=== PATIENT | female | born 2000 | race Caucasian/White ===

== ENCOUNTER 2022-11-11 04:15 | Observation (INO) | payer OTHER ==
[2022-11-11 07:40] VITALS: RESP 16
[2022-11-11] MEDS ORDERED: LACTATED RINGERS 1,000 ML IV SCH (07:45)
--- NOTE | 2022-11-11 08:00 | US ---
EXAMINATION TYPE: US OB limited DATE OF EXAM: 11/11/2022 COMPARISON: NONE CLINICAL INDICATION: Female, 22 years old with history of NAYLA; Pt states decrease in movement, Check NAYLA EXAM PERFORMED: Transabdominal (TA) GESTATIONAL AGE / DATING Physician Established: (35 weeks/1 days) EDC: 12/15/2022 No growth performed on today?s study per ordering physician SURVEY NAYLA: 11.3 cm Normal Ultrasound evidence of premature rupture of membranes? No HEART RATE: 160 bpm RHYTHM: Normal Preliminary results given to Labor and Delivery at time of exam IMPRESSION: 1. NAYLA 11.3 cm. 2. Single intrauterine gestation with cardiac activity measuring 160 bpm
[2022-11-11 08:04] LABS: Basophils % (A) 0 %; Eosinophils # (A) 0.1 k/uL (0-0.7); Eosinophils % (A) 1 %; HCT 30.3 % (34.0-46.0); HGB 9.8 gm/dL (11.4-16.0); Hypochromasia Moderate; Lymphocytes # (A) 1.9 k/uL (1.0-4.8); Lymphocytes % (A) 20 %; MCH 25.2 pg (25.0-35.0); MCHC 32.2 g/dL (31.0-37.0); MCV 78.2 fL (80.0-100.0); Mean Platelet Volume 9.5; Monocytes # (A) 0.5 k/uL (0-1.0); Monocytes % (A) 5 %; Neutrophils # (A) 6.7 k/uL (1.3-7.7); Neutrophils % (A) 71 %; Platelet Count 198 k/uL (150-450); Poikilocytosis Slight; RBC 3.87 m/uL (3.80-5.40); WBC 9.4 k/uL (3.8-10.6)
[2022-11-11] MEDS ORDERED: BETAMET ACET-BETAMETH SOD PHOS 6 MG/ML MDV IM SCH (09:15)
--- NOTE | 2022-11-11 10:28 | P.HPOB ---
History of Present Illness H&P Date: 11/11/22 Chief Complaint: Right leg swelling This is a 22-year-old at 35 weeks and 0 days who presented to triage this morning with the complaint of right leg swelling. The has been complicated by IUGR 3%ile with abdominal circumference less than the 1%ile for which the patient has been ungoing surveillance with NSTs, BPPs, and umbilical artery cord dopplers. IUGR was diagnosed at the anatomy scan at approximately 20 weeks for which the patient had an outpatient consultation and ultrasound with Maternal Medicine at [facility]. On of last week (11/08) the patient had a BPP of 4/8 with NST showing intermittent variables decelerations. Growth on this ultrasound estimated weight to be 4 pounds and 4 oucnes (3.8%ile). The decision was made to send the patient to [facility] given that the fetus was still in its 34th week for the NICU level care available at this facility. Upon arrival, the patient had a BPP of 8/8 with a reactive and reassuring heart tracing overnight and through the morning. The patient was discharged home with recommendation from [facility] to have an NST at [facility] OB triage today. Upon evaluation, the patient's right leg was equal in size to the left left. There was no erythema or tenderness concerning for DVT. The fetus has a normal baseline with moderate variability and accelerations, however, repetitive variables were seen on the heart tracing. The patient was admitting for observation and a course of betamethasone after shared decision making about the pros and cons of late steroid administration. Maternal work-up: blood type A positive, antibody screen negative, rubella immune, gonorrhea negative, chlamydia negative, 1 hour GTT 78. GBS unknown. Past Medical History: None Past Surgical History: None Past Gynecologic History: None, LMP 03/10/2022 Past Medical History Past Medical History: No Reported History History of Any Multi-Drug Resistant Organisms: None Reported Past Surgical History: No Surgical Hx Reported Past Anesthesia/Blood Transfusion Reactions: No Reported Reaction Past Psychological History: No Psychological Hx Reported Smoking Status: Never smoker Past Alcohol Use History: None Reported Past Drug Use History: None Reported - Past Family History Mother Family Medical History: No Reported History Medications and Allergies Home Medications Medication Instructions Recorded Confirmed Type Vit No.179/Iron/Folic 1 tab PO DAILY 11/11/22 11/11/22 History [ Tablet] Allergies Allergy/AdvReac Type Severity Reaction Status Date / Time No Known Allergies Allergy Verified 11/11/22 04:25 Exam Vital Signs Temp Pulse Resp BP Pulse Ox 11/11/22 08:02 98.6 F 70 16 120/63 98 11/11/22 07:51 98.6 F 70 16 120/63 98 11/11/22 04:24 98.1 F 80 16 129/80 98 Intake and Output 11/10/22 11/11/22 11/11/22 22:59 06:59 14:59 Other: Weight 63.957 kg 63.957 kg Focused physical exam is performed. Patient is in no apparent distress, has non- labored breathing, conversing normally. Abdomen gravid, non-tender. Extremities non-tender and non-edematous. On admission heart tracing showed 140 baseline with moderate variability, accelerations present, and repetitive variable decelerations. Tocometer shows irregular contractions every 5-20 minutes. Results Result Diagrams: 11/11/22 07:45 Abnormal Lab Results - Last 24 Hours (Table) 11/11/22 Range/Units 07:45 Hgb 9.8 L (11.4-16.0) gm/dL Hct 30.3 L (34.0-46.0) % MCV 78.2 L (80.0-100.0) fL Assessment and Plan Assessment: 22 year old at 35 weeks and 0 days with complicated by IUGR 3%ile and repetitive variables on NST Plan: IUGR fetus with repetitive variable decelerations: spoke with MFM today while patient was having variable decelerations every 5-20 minutes and they recommend delivery if the variables persist. Recommendation is for a shared decision making on whether or not to administer BMZ. Patient elects for BMZ after a detailed discussion of pros and cons. After 2 hours of continuous electronic monitoring, the fetus has a reactive and reassuring tracing with accelerations and no decelerations. The patient is given a regular diet and made NSTs TID x1 hour for surveillance. If the next 1-2 NSTs look reactive and reassuring, will consider discharge home this evening with close follow up tomorrow in the office for NST and visit. Time with Patient: Greater than 30 (35 minutes)
[2022-11-11 12:25] VITALS: BP 118/59; PULSE 64; TEMP 98
--- NOTE | 2022-11-11 13:18 | P.PN ---
Progress Note - Text Progress Note Date: 11/11/22 This is a 22 year old at 35 weeks and 0 days with complicated by IUGR 3%ile who was admitted for observation after heart tracing initially showed repetitive variable decelerations early this morning. On admission an NAYLA was checked and found to be 11. After being taken to a room, the patient has had several hours of tracing that is reactive and reassuring with 140 baseline, moderate variability, numerous accelerations and no decelerations. The patient received 1st dose of BMZ and will return to triage tomorrow for second dose. She has an appointment in the office tomorrow with NST scheduled for the morning. Patient stable for discharge at this time.
== END 2022-11-11 14:01 | disposition home or self-care (01) ==
LOC: FBPOP 04:15 → 4FBP 06:46 → INTOOBSV 06:46
PROVIDERS: ADMIT Obstetrics & Gynecology; ATTEND Obstetrics & Gynecology
DX: O36.8190 Decreased fetal movements, unspecified trimester, not applicable or unspecified (principal); O36.5930 Maternal care for other known or suspected poor fetal growth, third trimester, not applicable or unspecified; O36.8130 Decreased fetal movements, third trimester, not applicable or unspecified; Z3A.35 35 weeks gestation of pregnancy; M79.89 Other specified soft tissue disorders
CPT/HCPCS: 59025; 76815; 85025; 86850; 86900; 86901; 96372; 99213

== ENCOUNTER 2022-12-03 05:54 | Inpatient (IN) | payer OTHER ==
[2022-12-03] MEDS ORDERED: OXYTOCIN 10 UNIT/ML 1 ML VIAL IM PRN (06:12)
[2022-12-03] MEDS ORDERED: miSOPROStoL 200 MCG TAB PO PRN (06:12)
[2022-12-03] MEDS ORDERED: LIDOCAINE 0.5% (PF) 5 MG/ML (50 ML SDV) SQ PRN (06:12)
[2022-12-03] MEDS ORDERED: METHYLERGONOVINE 0.2 MG/ML 1 ML AMP IM PRN (06:12)
[2022-12-03] MEDS ORDERED: TRANEXAMIC 1,000 MG/100ML-NACL 1,000 MG in EMPTY BAG 1 BAG IV PRN (06:12)
[2022-12-03] MEDS ORDERED: CARBOPROST TROMETHAMINE 250 MCG/ML 1 ML AMP IM PRN (06:12)
[2022-12-03] MEDS ORDERED: TERBUTALINE 1 MG/ML VIAL SQ PRN (06:12)
[2022-12-03] MEDS ORDERED: OXYTOCIN 30 UNITS/500 ML NS 30 UNIT in SALINE 1 500ML.BAG IV SCH ×2 (06:15→19:45)
[2022-12-03] MEDS: LACTATED RINGERS 1,000 ML IV SCH ×2 (06:24→15:31)
[2022-12-03 06:34] LABS: Basophils % (A) 0 %; Eosinophils # (A) 0.1 k/uL (0-0.7); Eosinophils % (A) 1 %; HGB 9.2 gm/dL (11.4-16.0); Hypochromasia Moderate; Lymphocytes # (A) 1.8 k/uL (1.0-4.8); Lymphocytes % (A) 23 %; MCH 24.1 pg (25.0-35.0); MCHC 32.7 g/dL (31.0-37.0); MCV 73.7 fL (80.0-100.0); Mean Platelet Volume 9.1; Microcytosis Slight; Monocytes # (A) 0.5 k/uL (0-1.0); Monocytes % (A) 6 %; Neutrophils # (A) 5.5 k/uL (1.3-7.7); Neutrophils % (A) 68 %; Platelet Count 213 k/uL (150-450); Poikilocytosis Slight; RDW 15.9 % (11.5-15.5); WBC 8.1 k/uL (3.8-10.6)
--- NOTE | 2022-12-03 08:25 | P.HPOB ---
History of Present Illness H&P Date: 12/03/22 Chief Complaint: Medical induction of labor for intrauterine growth restriction Ms. Denney is a 22 year old at 38 weeks and 2 days with EDC of 12/15/2022 (by LMP consistent with 9 week US) who presents for medical induction of labor for intrauterine growth restriction. By 34 week ultrasound, the weight was estimated to be in the 3.8%ile with abdominal circumference less than 1%ile. Umbilical artery dopplers have been within normal limits. She has also had consultations with maternal medicine throughout the for severe IUGR. surveillance with NSTs, BPPs, and UA dopplers have been done on a twice-weekly basis. Maternal work-up: blood type A positive, antibody negative, rubella immune, VDRL non-reactive, HBsAg negative, HIV negative, GBS negative. Past medical history: None Past surgical history: None Medications: vitamins Allergies: NKDA Past Medical History Past Medical History: No Reported History History of Any Multi-Drug Resistant Organisms: None Reported Past Surgical History: No Surgical Hx Reported Past Anesthesia/Blood Transfusion Reactions: No Reported Reaction Past Psychological History: No Psychological Hx Reported Smoking Status: Never smoker Past Alcohol Use History: None Reported Past Drug Use History: None Reported - Past Family History Mother Family Medical History: No Reported History Medications and Allergies Home Medications Medication Instructions Recorded Confirmed Type Vit No.179/Iron/Folic 1 tab PO DAILY 11/11/22 12/03/22 History [ Tablet] Allergies Allergy/AdvReac Type Severity Reaction Status Date / Time No Known Allergies Allergy Verified 11/12/22 13:27 Exam Vital Signs Temp Pulse Resp BP Pulse Ox 12/03/22 06:11 97.0 F L 65 16 120/72 100 Intake and Output 12/02/22 12/03/22 12/03/22 22:59 06:59 14:59 Other: Weight 65.317 kg Focused physical exam is performed. This is a healthy-appearing in no apparent distress. Breathing is non-labored. Abdomen is gravid and non-tender. Cervical exam is 2 centimeters, 70% effaced, and -2 station. AROM is performed revealing clear amniotic fluid. Extremities are non-tender, non- edematous. heart tones are Category I with 2 IUs of pitocin. Tocometer is graphing irregular contractions. Results Result Diagrams: 12/03/22 06:20 Abnormal Lab Results - Last 24 Hours (Table) 12/03/22 Range/Units 06:20 Hgb 9.2 L (11.4-16.0) gm/dL Hct 28.0 L (34.0-46.0) % MCV 73.7 L (80.0-100.0) fL MCH 24.1 L (25.0-35.0) pg RDW 15.9 H (11.5-15.5) % Assessment and Plan Assessment: 22 year old at 38 weeks and 2 days with severe IUGR, abdominal circumference <1%ile (normal umbilical artery dopplers) presenting for medical induction of labor Plan: Admit, NPO, mIVF, pitocin per protocol, s/p AROM, epidural prn. Time with Patient: Greater than 30 (15 minutes)
[2022-12-03] MEDS ORDERED: ROPIVACAINE 5 MG/ML 30 ML VIAL ONE (13:32)
[2022-12-03] MEDS ORDERED: fentaNYL (PF) 50 MCG/ML 5 ML AMP ONE (13:32)
[2022-12-03] MEDS ORDERED: SODIUM CHLORIDE 0.9% 250 ML BAG ONE (13:32)
[2022-12-03] MEDS ORDERED: ROPIVACAINE 225 MG, fentaNYL (PF). 450 MCG in SODIUM CHLORIDE 0.9% 171 ML EPIDURAL ONE (13:58)
[2022-12-03] MEDS ORDERED: diphenhydrAMINE 25 MG CAP PO PRN (19:40)
[2022-12-03] MEDS ORDERED: ACETAMINOPHEN TAB 325 MG TAB PO PRN (19:40)
[2022-12-03] MEDS ORDERED: ZOLPIDEM 5 MG TAB PO PRN (19:40)
[2022-12-03] MEDS ORDERED: BENZOCAINE/MENTHOL SPRAY 1 GM/SPRAY AEROSOL TOPICAL PRN (19:40)
[2022-12-03] MEDS ORDERED: HYDROCORTISONE 2.5% RECTAL CREAM 30 GM TUBE RECTAL PRN (19:40)
[2022-12-03] MEDS ORDERED: SIMETHICONE 80 MG CHEWABLE PO PRN (19:40)
[2022-12-03] MEDS ORDERED: diphenhydrAMINE 50 MG CAP PO PRN (19:40)
[2022-12-03] MEDS ORDERED: LANOLIN CREAM 5 GM TUBE TOPICAL PRN (19:40)
[2022-12-03] MEDS ORDERED: IBUPROFEN 600 MG TAB PO PRN (19:40)
[2022-12-03] MEDS ORDERED: diphenhydrAMINE 50 MG/ML 1 ML VIAL IVP PRN ×2 (19:40)
--- NOTE | 2022-12-03 19:40 | P.PROBDLV ---
Vaginal Delivery Note - . Vaginal Delivery Note: DATE OF SERVICE: 12/03/2022 PROCEDURE: Normal Vaginal Delivery ATTENDING: Dr. Leonie Robin MD ESTIMATED BLOOD LOSS: 300 mL FINDINGS: VFI, Apgars 8/9. Weight 6 pounds and 0 ounces (2740 grams) PROCEDURE: Ms. Denney is a 22 year old at 38 weeks and 2 days weeks presenting to labor and delivery for medical induction of labor for intrauterine growth restriction (estimated weight in the 3%ile and abdominal circumference in <1%ile). For further details, please review the admitting H&P. After admission, pitocin was titrated per protocol and AROM was performed at 804 revealing clear fluid. The patient received epidural anesthesia per her request. Throughout the first stage of labor heart tones were Category I. The patient was completely dilated at 1802. The patient pushed effectively and heart tones remained Category I to II. Any decelerations were quickly resolved with position changes. The head was delivered over an intact perineum followed by the shoulders and the body. A viable female infant was delivered at 191. The was placed on the maternal abdomen and bulb suctioned. Cord was clamped and cut after a 30-second delay. The was handed off to the pediatric team. Placenta was delivered whole with gentle cord traction at 191. Oxytocin was started to facilitate uterine tone. Uterine fundus was found to be firm and below the umbilicus upon fundal massage. Thorough examination of the cervix, vagina, periurethral area, and perineum revealed na second degree perineal laceration. The second degree laceration was repaired with 2-0 Vicryl after the area was infiltrated with lidocaine. The patient is stable and allowed to begin the bonding process. Patient stable .
[2022-12-03] MEDS: SENNOSIDES-DOCUSATE SODIUM 1 EACH TAB PO SCH (22:13)
[2022-12-04 05:23] VITALS: RESP 16
[2022-12-04 06:26] LABS: Anisocytosis Slight; Basophils % (A) 0 %; Eosinophils % (A) 1 %; HCT 25.3 % (34.0-46.0); HGB 8.2 gm/dL (11.4-16.0); Hypochromasia Moderate; Lymphocytes # (A) 1.4 k/uL (1.0-4.8); Lymphocytes % (A) 17 %; MCH 24.1 pg (25.0-35.0); MCHC 32.6 g/dL (31.0-37.0); MCV 73.9 fL (80.0-100.0); Mean Platelet Volume 9.9; Microcytosis Slight; Monocytes # (A) 0.6 k/uL (0-1.0); Monocytes % (A) 7 %; Neutrophils # (A) 6.3 k/uL (1.3-7.7); Neutrophils % (A) 74 %; Platelet Count 201 k/uL (150-450); Poikilocytosis Slight; RBC 3.42 m/uL (3.80-5.40); WBC 8.5 k/uL (3.8-10.6)
[2022-12-04] MEDS: SENNOSIDES-DOCUSATE SODIUM 1 EACH TAB PO SCH ×2 (08:15→20:42)
--- NOTE | 2022-12-04 09:00 | P.DS ---
Providers Date of admission: 12/03/22 05:54 Expected date of discharge: 12/04/22 Attending physician: Leonie Robin MD Primary care physician: Stated None Hospital Course: This is a 22 year old now PPD#1 s/p normal vaginal delivery after medical induction of labor for intrauterine growth restriction. She desires discharge home this evening after 24 hours . The patient is doing well this morning and had no acute events overnight. She has no complaints this morning. She reports minimal lochia, passing flatus, voiding without difficulty, ambulating, and eating/drinking without nausea or vomiting. doing well at bedside. She denies chest pain, shortness of breathing, fevers, or chills overnight. She denies pain or swelling in the legs. restrictions are reviewed with the patient including pelvic rest for 6 weeks. The patient is encouraged to call the office if she experiences any heavy bleeding, foul- smelling discharge, breast complaints, or any if she has any other concerns. She will follow up in the office in 6 weeks for exam. Recommend using ferrous sulfate every other day given hemoglobin of 8.2. Discussed side effect of constipation, will also prescribe a stool softener. All questions are answered. Assessment: This is a 22 year old now PPD#1 s/p normal vaginal delivery after medical induction of labor for IUGR Patient Condition at Discharge: Good Plan - Discharge Summary New Discharge Prescriptions: No Action Vit No.179/Iron/Folic [ Tablet] 1 tab PO DAILY Discharge Medication List Vit No.179/Iron/Folic [ Tablet] 1 tab PO DAILY 11/11/22 [History]
[2022-12-04] MEDS ORDERED: FERROUS SULFATE 325 MG TAB PO SCH (12:30)
[2022-12-04 20:42] VITALS: BP 122/79; PULSE 74; TEMP 97.9
--- NOTE | 2022-12-05 13:56 | CDI ---
Documentation Clarification Form Date: 12/05/2022 01:43:52 PM From: Nadya Daugherty Admit Date: 12/03/2022 05:54:00 AM Patient Name: Salud Denney Visit Number: [id number] Discharge Date: 12/04/2022 09:45:00 PM ATTENTION: The Clinical Documentation Specialists (CDI) and [facility] Coding Staff appreciate your assistance in clarifying documentation. Please respond to the clarification below the line at the bottom and electronically sign. The CDI & [facility] Coding staff will review the response and follow-up if needed. Please note: Queries are made part of the Legal Health Record. If you have any questions, please contact the author of this message via ITS. Dr. Leonie Robin Your patient has a hemoglobin/hematocrit level of 9.2 and 28.0 on 12/03/22 and 8.2 and 25.3 on 12/04/22. Please clarify if there is an additional diagnosis and/or clinical significance related to these lab values. History/Risk Factors: patient is a 22 year old admitted for medical induction of labor, she is a , 38 weeks Clinical indicators: patient is 38 weeks , admitted for IUGR by 34 week ultrasound. Patient was induced with AROM, Pitocin, and she received epidural anesthesia. She went on to deliver a viable female vaginally, placenta was delivered whole with gentle cord traction, oxytocin was started to facilitate uterine tone, and she had a 2nd degree perineal laceration which was repaired with 2-0 vicryl. Estimated blood loss was 300mL course was uncomplicated, reports minimal lochia, voiding and ambulating without difficulty. Discharge day 1. Treatment: medical induction of labor with AROM and Pitocin, Pitocin initialed post delivery to facilitate uterine tone, discharges on vitamin Is there an additional diagnosis and/or clinical significance related to the above lab result/information: [ X ] Acute blood loss anemia [ ] Acute on chronic blood loss anemia [ ] Chronic Iron deficiency anemia [ ] No additional diagnosis/Not clinically significant [ ] Other, please specify MTDD
== END 2022-12-04 21:45 | disposition home or self-care (01) | DRG 806 ==
LOC: 4FBP 05:54
PROVIDERS: ADMIT Obstetrics & Gynecology; ATTEND Obstetrics & Gynecology
PROC: 3E033VJ Introduction of Other Hormone into Peripheral Vein, Percutaneous Approach (ICD-10-PCS; principal; 2022-12-03)
PROC: 10907ZC Drainage of Amniotic Fluid, Therapeutic from Products of Conception, Via Natural or Artificial Opening (ICD-10-PCS; principal; 2022-12-03)
PROC: 0KQM0ZZ Repair Perineum Muscle, Open Approach (ICD-10-PCS; principal; 2022-12-03)
PROC: 10E0XZZ Delivery of Products of Conception, External Approach (ICD-10-PCS; principal; 2022-12-03)
DX: O36.5930 Maternal care for other known or suspected poor fetal growth, third trimester, not applicable or unspecified (principal); D62 Acute posthemorrhagic anemia; O99.02 Anemia complicating childbirth; O76 Abnormality in fetal heart rate and rhythm complicating labor and delivery; O70.1 Second degree perineal laceration during delivery; Z28.310 Unvaccinated for COVID-19; Z3A.38 38 weeks gestation of pregnancy; Z37.0 Single live birth
CPT/HCPCS: 85025; 86850; 86900; 86901; 88307